=== PATIENT | female | born 1940 | race Caucasian/White ===

== ENCOUNTER 2016-04-10 08:43 | Outpatient (CLI) | payer MEDICARE | END 2016-04-10 08:44 | LOC: POD 08:43 | PROVIDERS: ATTEND Podiatrist Public Medicine | DX: E11.42 Type 2 diabetes mellitus with diabetic polyneuropathy (principal); B35.1 Tinea unguium; M79.674 Pain in right toe(s); M79.675 Pain in left toe(s) | CPT/HCPCS: 11721; G0463 ==

== ENCOUNTER 2016-07-10 08:49 | Outpatient (CLI) | payer MEDICARE | END 2016-07-10 08:50 | LOC: POD 08:49 | PROVIDERS: ATTEND Podiatrist Public Medicine | DX: E11.42 Type 2 diabetes mellitus with diabetic polyneuropathy (principal); B35.1 Tinea unguium; M79.674 Pain in right toe(s); M79.675 Pain in left toe(s) | CPT/HCPCS: 11721; G0463 ==

== ENCOUNTER 2016-09-10 13:24 | Outpatient (CLI) | payer MEDICARE | END 2016-09-10 13:25 | LOC: CARD 13:24 | PROVIDERS: ATTEND Internal Medicine Cardiovascular Disease | DX: I48.91 Unspecified atrial fibrillation (principal) | CPT/HCPCS: G0463 ==

== ENCOUNTER 2016-12-11 11:10 | Outpatient (CLI) | payer MEDICARE | END 2016-12-11 11:11 | LOC: POD 11:10 | PROVIDERS: ATTEND Podiatrist Public Medicine | DX: M20.12 Hallux valgus (acquired), left foot (principal); M79.674 Pain in right toe(s); M20.11 Hallux valgus (acquired), right foot; E11.42 Type 2 diabetes mellitus with diabetic polyneuropathy; M79.675 Pain in left toe(s); B35.1 Tinea unguium | CPT/HCPCS: 11721; G0463 ==

== ENCOUNTER 2017-03-12 11:09 | Outpatient (CLI) | payer MEDICARE | END 2017-03-12 14:05 | LOC: POD 11:09 | PROVIDERS: ATTEND Podiatrist Public Medicine | DX: E11.42 Type 2 diabetes mellitus with diabetic polyneuropathy (principal); B35.1 Tinea unguium; M79.674 Pain in right toe(s); M79.675 Pain in left toe(s); M20.11 Hallux valgus (acquired), right foot; M20.12 Hallux valgus (acquired), left foot | CPT/HCPCS: 11721; G0463 ==

== ENCOUNTER 2017-06-17 13:47 | Outpatient (CLI) | payer MEDICARE | END 2017-06-17 13:50 | LOC: CARD 13:47 | PROVIDERS: ATTEND Internal Medicine Cardiovascular Disease | DX: I48.91 Unspecified atrial fibrillation (principal); I25.10 Atherosclerotic heart disease of native coronary artery without angina pectoris; I10 Essential (primary) hypertension; E78.5 Hyperlipidemia, unspecified; E66.9 Obesity, unspecified; E11.9 Type 2 diabetes mellitus without complications | CPT/HCPCS: 93005; G0463 ==